=== PATIENT | male | born 1975 | race Caucasian/White ===

== ENCOUNTER 2019-09-17 01:16 | Outpatient (CLI) | payer OTHER, SELFPAY ==
[2019-09-17 20:05] LABS: SARS-CoV-2 RNA PCR Negative
== END 2019-09-17 01:17 | disposition home or self-care (01) ==
LOC: ANHCOVIDDT 01:17
PROVIDERS: PCP Family Medicine; Visit Provider Surgery
DX: Z01.812 Encounter for preprocedural laboratory examination (principal); Z11.59 Encounter for screening for other viral diseases
CPT/HCPCS: 87635; C9803; U0003

== ENCOUNTER 2019-09-17 09:28 | Outpatient (CLI) | payer OTHER, SELFPAY | END 2019-09-17 09:29 | disposition home or self-care (01) | PROVIDERS: PCP Pediatrics; Visit Provider Surgery | DX: Z01.818 Encounter for other preprocedural examination (principal); K40.90 Unilateral inguinal hernia, without obstruction or gangrene, not specified as recurrent | CPT/HCPCS: 36415; 86850; 86900; 86901 ==

== ENCOUNTER 2019-09-20 00:50 | Day surgery (SDC) | payer OTHER, SELFPAY ==
[2019-09-13 13:22] VITALS: BMI 29.5
[2019-09-20] VITALS (10 sets, daily range): BP systolic 109–164; BP diastolic 63–84; PULSE 50–79; RESP 11–16; TEMP 36.6–36.7; O2SAT 94–99
--- NOTE | 2019-09-20 08:11 | WPDANESEPPF ---
Anes - Initial Pre Proc Eval Procedure: Operation Date: 09/20/19 10:00 Proposed Procedures p Robotic Assisted Bilateral Inguinal Hernia Repair with Mesh - Jesenia Kwok MD Date/Time: 09/20/19 08:11 Surgeon: Jesenia Kwok MD Pre Op Diagnosis: bilat inguinal hernia Patient Data Age: 43 Gender: M Height: 1.88 m Weight: 104.54 kg Allergies Allergy/AdvReac Type Severity Reaction Status Date / Time vancomycin Allergy Intermediate Itching Verified 09/20/19 08:15 Sulfa (Sulfonamide Allergy Mild Hives Verified 09/20/19 08:15 Antibiotics) Home Medications Medication Instructions Recorded Confirmed Type No Home Medications 09/06/19 09/20/19 History Patient hx anesthesia problems: none Family hx anesthesia problems: none PMFSH Family History Family History (Updated 09/08/19 @ 08:59 by Emma Villatoro [facility]) Father Carcinoma of colon Unknown Diabetes mellitus Heart disease Cancer Hypertension Social History Social History Smoking status: Never smoker Alcohol intake: never Substance use: never Living arrangements: with family Additional occupation/education comments: Teacher Gender identity (if verbalized by the patient): Male Spiritual care concerns: No Anes - Eval Final PreProcedure Day of Procedure 09/20/19 08:11 Patient weight: overweight Heart: regular rate and rhythm Lungs: clear to auscultation and normal air movement Airway: Mallampati scale class 1 Neurological: alert and oriented Last oral intake: >/= 8 hours ASA classification: II Emergent: no Anesthetic plan: proceed Anesthesia type and monitoring: general ETT and standard monitoring Informed Consent: The patient's anesthetic plan and its attendant risks and benefits were discussed with the patient/family/POA. Questions were solicited and answers provided to the satisfaction of the patient/family/POA.
[2019-09-20] MEDS: LACTATED RINGERS 1,000 ML 30 ML IV CONT ×2 (08:40→13:55)
[2019-09-20] MEDS: ACETAMINOPHEN 500 MG TABLET 1000 MG PO (09:06)
[2019-09-20] MEDS: KETOROLAC 15 MG/ML VIAL (*BKC) IV PUSH (09:07)
--- NOTE | 2019-09-20 11:01 | WPDHPUPDATE1 ---
History and Physical Update Update Date/Time: 09/20/19 11:01 History and Physical has been reviewed, including an updated exam of the patient. There are NO changes in the patient's condition. Risks, benefits, and alternatives have been discussed and questions answered. Patient agrees to proceed with procedure.
--- NOTE | 2019-09-20 11:17 | SUR.PREOP ---
Offered a bathroom break but patient declined.
[2019-09-20] MEDS: ceFAZolin 2 GM/D5W 50 ML 2 GM/50 ML BAG IVPB (11:39)
[2019-09-20] MEDS: BUPIVACAINE/EPINEPHRINE 0.5% 10 ML VIAL 30 ML INFILTRATE (12:11)
--- NOTE | 2019-09-20 13:47 | PM.PROC ---
Procedure Note - Detailed Date of procedure: 09/20/19 Pre-op diagnosis: bilat inguinal hernia Post-op diagnosis: same Procedure performed: robotic assisted bilateral inguinal hernia repair with 15 x 10 cm Progrip mesh bilaterally Description of procedure: Patient was brought into the operating room and placed in the supine position. After adequate induction of general anesthesia, the patient was prepped and draped in normal sterile fashion. A time-out was then done to verify the patient's identity, as well as the procedure being performed. Began by making a 8 mm incision in the supraumbilical region, a Veress needle was then placed into the peritoneal cavity. CO2 gas was then insufflated and after adequate pneumoperitoneum was achieved, the Veress needle was removed. I then placed an 8 mm trocar through this incision. I then placed the endoscope through this trocar site and under direct visualization placed 2 further 8 mm ports in the right and left mid abdomen. The [employer] robot was then docked to the 3 trocar sites. I then scrubbed out and went to the robotic console. Upon examining the pelvis, it was noted that the patient had bilateral inguinal hernias. I began by making a preperitoneal flap approximately 6 cm superior to the defect on the right. This flap was carried medially past the umbilical ligaments and laterally to the transversalis. I then began dissection of my medial compartment taking this down to the pubic tubercle. I then began the lateral dissection taking this down to the transversalis fascia. Once these compartments were achieved, I began dissection around the cord structures. It was noted at this point that the patient had a indirect hernia. Patient also had a lipoma the cord. Using careful dissection, was able to reduce the lipoma cord as well separate the indirect hernia off the cord structures. Once this was adequately done, I went ahead and placed a 15 x 10 piece of [employer] mesh into the abdominal cavity. The mesh was carefully positioned, centering the center of the mesh over the indirect defect. Once this was done, was very satisfied with our tension-free repair. Repeating the procedure on the left, I began by making a preperitoneal flap approximately 6 cm superior to the defect on the left. This flap was carried medially past the umbilical ligaments and laterally to the transversalis. I then began dissection of my medial compartment taking this down to the pubic tubercle. I was able to connect this to the repair on the right side. I then began the lateral dissection taking this down to the transversalis fascia. Once these compartments were achieved, I began dissection around the cord structures. It was noted at this point that the patient had a indirect hernia. Patient also had a lipoma the cord. Using careful dissection, was able to reduce the lipoma cord as well separate the indirect hernia off the cord structures. Once this was adequately done, I went ahead and placed a 15 x 10 piece of [employer] mesh into the abdominal cavity. The mesh was carefully positioned, centering the center of the mesh over the indirect defect. Once this was done, was very satisfied with our tension-free repair. I then closed the peritoneal flap with a running 2.0 V Lock suture on both sides. The abdomen was then desufflated, and all ports were removed. All incisions were then closed with the 4.0 monocryl suture. Dermabond was placed on each wound. The patient tolerated the procedure well, was extubated in the operating room postoperatively, and will now be transferred to the recovery room in stable condition. Implants: 15 x 10 progrip mesh x 2 Anesthesia: GETA Surgeon: Jesenia Kwok MD Estimated blood loss (mL): 5 Drains: No Packing: No Pathology: none sent Complications: No immediate complications Condition: stable Disposition: PACU Findings: indirect bilateral inguinal hernia
[2019-09-20] MEDS: ONDANSETRON INJ 4 MG/2 ML VIAL IV PUSH (15:00)
[2019-09-20] MEDS: diphenhydrAMINE HCl INJ 50 MG/ML VIAL 25 MG IV PUSH (16:08)
== END 2019-09-20 16:50 | disposition home or self-care (01) ==
PROVIDERS: PCP Pediatrics; Visit Provider Surgery
PROC: 8E0Y4CZ Robotic Assisted Procedure of Lower Extremity, Percutaneous Endoscopic Approach (ICD-10-PCS; CPT 49650; principal; 2019-09-20 10:00)
DX: K40.20 Bilateral inguinal hernia, without obstruction or gangrene, not specified as recurrent (principal)
CPT/HCPCS: 49505; A9270; C1781; J0690; J1100; J1170; J1200; J1885; J2250; J2405; J2704; J2710; J3010; J7120